=== PATIENT | male | born 1965 | race African-American/Black ===

== ENCOUNTER 2019-05-09 08:44 | Emergency (ER) | payer MEDICARE, MEDICAID ==
[2019-05-09] MEDS ORDERED: Ondansetron 4 MG/2 ML SDV IVPUSH ONE (09:22)
[2019-05-09] MEDS ORDERED: HYDROmorphone 0.5 MG/0.5 ML Syringe IVPUSH ONE (09:22)
[2019-05-09] MEDS ORDERED: Sodium Chloride 0.9% 10 ML Syringe FLUSH PRN (09:23)
[2019-05-09] MEDS ORDERED: Sodium Chloride 0.9% 1,000 ML IV SCH ×2 (09:30→11:30)
[2019-05-09] MEDS ORDERED: Magnesium Citrate Solution 296 ML Bottle PO ONE (13:13)
--- NOTE | 2019-05-09 13:14 | EDM.PDOC ---
ED HPI GENERAL MEDICAL PROBLEM - General Chief Complaint: Abdominal Pain Stated Complaint: ABDOMINAL PAIN Time Seen by Provider: 05/09/19 09:10 Source of Information: Reports: Patient, RN Notes Reviewed - History of Present Illness INITIAL COMMENTS - FREE TEXT/NARRATIVE: 54 year old male states he recieved an "electrical shock" last evening about 12 -13 hours ago. He states he grabbed an "electric drill, was working with the cord and did not realize he was standing on a wet floor" He states there was a "shock sensation that went up his L hand and arm" He states it "threw him back " allowing him to let go of the drill. He had some mild discomfort and numbness L hand and arm last evening but nothing severe. Today he has continued mild achiness L arm but mostly concerned about discomfort upper mid abd, that he did not have last evening. No difficulty breathing. No nausea or vomiting. Has been eating and drinking OK. No unusual voiding sx. Upper Abdomen Pain Score (Numeric/FACES): 8 - Related Data Allergies Allergy/AdvReac Type Severity Reaction Status Date / Time No Known Allergies Allergy Verified 05/09/19 08:59 Past Medical History Cardiovascular History: Reports: Hypertension, Stents Social & Family History - Tobacco Use Smoking Status *Q: Current Every Day Smoker Years of Tobacco use: 30 Packs/Tins Daily: 0.5 - Caffeine Use Caffeine Use: Reports: Coffee - Recreational Drug Use Recreational Drug Use: No ED ROS GENERAL - Review of Systems Review Of Systems: See Below Constitutional: Denies: Fever, Chills, Diaphoresis HEENT: Reports: No Symptoms Respiratory: Denies: Shortness of Breath, Pleuritic Chest Pain Cardiovascular: Denies: Chest Pain GI/Abdominal: Reports: Abdominal Pain. Denies: Decreased Appetite, Hematochezia , Melena, Nausea, Vomiting : Reports: No Symptoms. Denies: Dysuria, Hematuria, Pain, Urgency Musculoskeletal: Reports: Arm Pain (mild). Denies: Shoulder Pain, Back Pain Skin: Reports: No Symptoms Neurological: Reports: Numbness (gone). Denies: Trouble Speaking, Difficulty Walking, Weakness ED EXAM, GI/ABD - Physical Exam Exam: See Below Exam Limited By: No Limitations General Appearance: Alert, No Apparent Distress Eyes: Bilateral: Normal Appearance Ears: Normal External Exam Nose: Normal Inspection Throat/Mouth: Normal Inspection Head: Atraumatic Neck: Supple, Full Range of Motion Respiratory/Chest: No Respiratory Distress, Lungs Clear, Normal Breath Sounds Cardiovascular: Regular Rate, Rhythm GI/Abdominal Exam: Soft, Tender (mild tenderness upper mid abd). No: Guarding, Rebound Extremities: Normal Inspection, Normal Range of Motion Neurological: Alert, Oriented, No Motor/Sensory Deficits Skin Exam: Warm, Dry Course - Vital Signs Last Recorded V/S: Last Vital Signs Temp 96.2 F 05/09/19 13:30 Pulse 78 05/09/19 13:30 Resp 16 05/09/19 13:30 BP 148/116 H 05/09/19 13:30 Pulse Ox 100 05/09/19 13:30 - Orders/Labs/Meds Labs: Laboratory Tests 05/09/19 05/09/19 05/09/19 Range/Units 09:50 09:50 10:35 WBC 5.35 (4.23-9.07) K/mm3 RBC 4.68 (4.63-6.08) M/mm3 Hgb 14.1 (13.7-17.5) gm/L Hct 42.8 (40.1-51.0) % MCV 91.5 (79.0-92.2) fl MCH 30.1 (25.7-32.2) pg MCHC 32.9 (32.2-35.5) g/dl RDW Std Deviation 49.9 H (35.1-43.9) fL Plt Count 177 (163-337) K/mm3 MPV 11.4 (9.4-12.3) fl Neut % (Auto) 57.7 (34.0-67.9) % Lymph % (Auto) 28.4 (21.8-53.1) % [place] % (Auto) 11.2 (5.3-12.2) % Eos % (Auto) 2.1 (0.8-7.0) Baso % (Auto) 0.4 (0.1-1.2) % Neut # (Auto) 3.09 (1.78-5.38) K/mm3 Lymph # (Auto) 1.52 (1.32-3.57) K/mm3 [place] # (Auto) 0.60 (0.30-0.82) K/mm3 Eos # (Auto) 0.11 (0.04-0.54) K/mm3 Baso # (Auto) 0.02 (0.01-0.08) K/mm3 Sodium 140 (136-145) mEq/L Potassium 4.1 (3.5-5.1) mEq/L Chloride 107 (98-107) mEq/L Carbon Dioxide 23 (21-32) mEq/L Anion Gap 14.1 (5-15) BUN 18 (7-18) mg/dL Creatinine 1.4 H (0.7-1.3) mg/dL Est Cr Clr Drug Dosing 66.58 mL/min Estimated GFR (MDRD) > 60 (>60) mL/min BUN/Creatinine Ratio 12.9 L (14-18) Glucose 72 L (74-106) mg/dL Calcium 9.1 (8.5-10.1) mg/dL Total Bilirubin 0.4 (0.2-1.0) mg/dL AST 44 H (15-37) U/L ALT 26 (16-63) U/L Alkaline Phosphatase 68 (46-116) U/L Creatine Kinase 909 H (39-308) U/L Total Protein 6.9 (6.4-8.2) g/dl Albumin 3.5 (3.4-5.0) g/dl Globulin 3.4 gm/dL Albumin/Globulin Ratio 1.0 (1-2) Lipase 332 (73-393) U/L Urine Color Yellow (Yellow) Urine Appearance Clear (Clear) Urine pH 6.0 (5.0-8.0) Ur Specific [place] 1.025 (1.005-1.030) Urine Protein Negative (Negative) Urine Glucose (UA) Negative (Negative) Urine Ketones Negative (Negative) Urine Occult Blood Negative (Negative) Urine Nitrite Negative (Negative) Urine Bilirubin Negative (Negative) Urine Urobilinogen 0.2 (0.2-1.0) Ur Leukocyte Esterase Negative (Negative) Urine RBC 0-5 (0-5) /hpf Urine WBC 0-5 (0-5) /hpf Ur Squamous Epith Cells 0-5 (0-5) /hpf Urine Bacteria Rare (FEW) /hpf Urine Mucus Moderate H (FEW) /hpf Meds: Medications Discontinued Medications Generic Name Dose Route Start Last Admin Trade Name Freq PRN Reason Stop Dose Admin Hydromorphone HCl 0.5 mg 05/09/19 09:22 05/09/19 10:06 Dilaudid IVPUSH 05/09/19 09:23 0.5 mg ONETIME ONE Administration Sodium Chloride 1,000 mls @ 999 mls/hr 05/09/19 09:30 05/09/19 10:08 Normal Saline IV 999 mls/hr ONETIME MARGARITA Administration Sodium Chloride 1,000 mls @ 999 mls/hr 05/09/19 11:30 05/09/19 11:30 Normal Saline IV 999 mls/hr ONETIME MARGARITA Administration Magnesium Citrate 296 ml 05/09/19 13:13 05/09/19 13:32 Citrate Of Magnesia PO 05/09/19 13:14 296 ml ONETIME ONE Administration Ondansetron HCl 4 mg 05/09/19 09:22 05/09/19 10:04 Zofran IVPUSH 05/09/19 09:23 4 mg ONETIME ONE Administration Sodium Chloride 10 ml 05/09/19 09:23 05/09/19 10:00 Saline Flush FLUSH 10 ml ASDIRECTED PRN Administration Keep Vein Open - Re-Assessments/Exams Free Text/Narrative Re-Assessment/Exam: 05/10/19 14:57 Labs did come back relatively normal, CK very mildly elevated at 909. We did give 2 liters of fluid IV. Did check abd Xrays which showed increased stool gas pattern. Did discharge home with a bottle of mag citrate. Discharge instr. as documented. Departure - Departure Time of Disposition: 13:08 Disposition: Home, Self-Care 01 Condition: Fair Clinical Impression: Atypical chest pain, Electrical injury in adult Abdominal pain Qualifiers: Abdominal location: upper abdomen, unspecified Qualified Code(s): R10.10 - Upper abdominal pain, unspecified - Discharge Information Instructions: Abdominal Pain, Adult, [id number] Referrals: PCP,Not In Area [Primary Care Provider] - Forms: ED Department Discharge Additional Instructions: Drink plenty of water to maintain hydration, rest, no exertional activity recommended for the next several days, clear liquids and bland diet as tolerated, Magnesium citrate, drink one half bottle this afternoon and than drink the remainder tomorrow if you do not have a good BM by tomorrow morning. You may alternate Tylenol and ibuprofen as needed for any further discomfort. Follow-up clinic as needed, return to ED as needed if symptoms worsening in any way.
--- NOTE | 2019-05-09 14:51 | CR ---
Abdominal series: Supine and upright views of the abdomen were obtained as well as frontal view of the chest. Comparison: No previous chest or abdominal imaging. Previous lower lumbar spine surgery is noted. Inferior vena cava filter is seen. Scattered gas within nondilated small bowel and colon is seen which does not appear to be obstructive. No free air is seen. Heart size is normal. Tortuous thoracic aorta is seen. Lungs are clear with no acute parenchymal change. Impression: 1. Incidental findings as noted above. Nothing acute is identified. Diagnostic code #2
== END 2019-05-09 13:40 | disposition home or self-care (01) ==
LOC: JD.ED 08:44
DX: R07.89 Other chest pain (principal); R10.10 Upper abdominal pain, unspecified; I10 Essential (primary) hypertension; F17.210 Nicotine dependence, cigarettes, uncomplicated; W86.8XXA Exposure to other electric current, initial encounter
CPT/HCPCS: 36415; 74022; 80053; 81001; 82550; 83690; 85025; 96361; 96374; 96375; 99284; A9270; J1170; J2405; J7040